=== PATIENT | female | born 1995 | race Two or more races ===

== ENCOUNTER 2019-03-20 19:21 | Emergency (ER) | payer OTHER ==
[~2019-03-20] VITALS: Ht 170.2 cm; Wt 80.3 kg
--- NOTE | 2019-03-20 19:31 | NUR ---
LURDES FROM HOME. TO ER BED 11. AAOX 4. NO RESP DISTRESS NOTED, BREATHING EVEN AND UNLABORED. BROUGHT IN ON GURNEY. 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 PT ALSO REPORTS THAT SHE PASSED OUT SHE WAS GETTING IN TO THE CAR THATS WHEN HER MOM CALLED [employer]. PT REPORTS THAT IT STARTED YESTERDAY AT [facility]. SHE THEN JAYDA TO [facility] W. FEVER OF 102 AND WAS TOLD THAT HER BP WAS ELEVATED. MD AT BEDSIDE FOR EVAL. AWAITING ORDERS
--- NOTE | 2019-03-20 19:41 | NUR ---
TECH AT BEDSIDE FOR EKG
[2019-03-20] MEDS ORDERED: ONDANSETRON HCL/PF 4 MG/2 ML VIAL IV ONE (20:00)
[2019-03-20] MEDS ORDERED: PANTOPRAZOLE 40 MG VIAL IV ONE (20:00)
[2019-03-20] MEDS ORDERED: ACETAMINOPHEN 325 MG TABLET PO ONE (20:00)
[2019-03-20] MEDS ORDERED: IV NS 0.9% 1,000 ML BAG IV ONE ×2 (20:00→21:00)
[2019-03-20 20:03] LABS: BASOPHILS % (AUTO) 0.5 % (0.0-2.0); EOSINOPHILS % (AUTO) 0.1 % (0.0-6.0); HEMATOCRIT 40 % (33-45); HEMOGLOBIN 13.5 g/dL (11.5-14.8); LYMPHOCYTES # (AUTO) 0.7 /CMM (0.8-4.8); MEAN CORPUSCULAR HGB CONC 34 g/dl (31.0-36.0); MEAN CORPUSCULAR VOLUME 91 fL (82-100); MONOCYTES # (AUTO) 0.5 /CMM (0.1-1.30); MONOCYTES % (AUTO) 13.6 % (2.0-12.0); NEUTROPHILS # (AUTO) 2.5 /CMM (1.8-8.9); NEUTROPHILS % (AUTO) 67.8 % (43.0-81.0); PLATELET COUNT (AUTO) 220 /CMM (150-450); RED BLOOD CELL COUNT(AUTO) 4.38 MIL/uL (4.0-5.2); WHITE BLOOD COUNT (AUTO) 3.7 K/uL (4.3-11.0)
[2019-03-20] MEDS ORDERED: ONDANSETRON HCL/PF 4 MG/2 ML VIAL ONE (20:05)
[2019-03-20] MEDS ORDERED: ACETAMINOPHEN ES 500 MG TABLET ONE (20:05)
[2019-03-20] MEDS ORDERED: PANTOPRAZOLE 40 MG VIAL ONE (20:05)
[2019-03-20 20:16] LABS: CALCIUM, SERUM 8.4 mg/dL (8.5-10.1); CREATININE 0.7 mg/dL (0.6-1.3); POTASSIUM 3.3 mmol/L (3.5-5.1)
--- NOTE | 2019-03-20 20:16 | NUR ---
MIGUEL MORALES MADE AWARE OF ORTHOSTATIC VS RESULT. XRAY AT BEDSIDE
[2019-03-20 20:22] LABS: ALBUMIN 3.6 g/dL (3.4-5.0); BILIRUBIN,DIRECT 0.1 mg/dL (0.0-0.2); BILIRUBIN,TOTAL 0.3 mg/dL (0.2-1.0); TOTAL PROTEIN, SERUM 7.4 g/dL (6.4-8.2)
[2019-03-20 20:22] LABS: APPEARANCE,URINE Clear (CLEAR); BILIRUBIN,URINE Negative (NEGATIVE); BLOOD, URINE Moderate Ery/uL (NEGATIVE); COLOR,URINE Yellow (YELLOW); KETONES,URINE Negative (NEGATIVE); LEUKOCYTE ESTERASE ,URINE Negative (NEGATIVE); NITRITE, URINE Negative (NEGATIVE); PROTEIN,URINE Negative (NEGATIVE); UGLUCOSE Negative (NEGATIVE)
[2019-03-20 20:33] LABS: BACTERIA,URINE 1+ /HPF (None Seen); RBC,URINE 21-50 /HPF (0-2); SQUAMOUS EPITHELIAL CELL,UR Moderate /HPF (None Seen); WBC,URINE NONE SEEN /HPF (0-3)
[2019-03-20 20:34] LABS: MUCUS,URINE Few /LPF (None Seen)
[2019-03-20] MEDS ORDERED: OSELTAMIVIR PHOSPHATE 75 MG CAPSULE ONE (20:45)
[2019-03-20] MEDS ORDERED: OSELTAMIVIR PHOSPHATE 75 MG CAPSULE PO ONE (21:00)
[2019-03-20] MEDS ORDERED: POTASSIUM CHLORIDE 20 MEQ TAB.PRT.SR PO ONE ×2 (21:00→21:07)
--- NOTE | 2019-03-20 21:38 | NUR ---
Patient discharged to home in stable condition. Written and verbal after care instructions given. Patient verbalizes understanding of instruction.IV removed. Catheter intact and site benign. Pressure and 4x4 applied to site. No bleeding noted. Pt ambulatory with a steady gait
[2019-03-20 21:39] VITALS: BP 103/69
== END 2019-03-20 22:00 | disposition home or self-care (01) ==
LOC: ER 19:23
DX: J10.1 Influenza due to other identified influenza virus with other respiratory manifestations (principal); R55 Syncope and collapse; R42 Dizziness and giddiness; R11.10 Vomiting, unspecified; R00.0 Tachycardia, unspecified; Z88.5 Allergy status to narcotic agent
CPT/HCPCS: 36415; 71045; 80048; 80076; 81001; 84703; 85025; 87804; 93005; 96361; 96374; 96375; 99284; C9113; J2405; J7030 ×2; 81000-TC

== ENCOUNTER 2019-03-22 22:26 | Emergency (ER) | payer OTHER ==
[~2019-03-22] VITALS: Ht 165.1 cm; Wt 80.7 kg
--- NOTE | 2019-03-22 22:30 | NUR ---
BIBS. C/O COUGH, CONGESTION, FEVER 102.8,HEADACHE, WEAKNESS. ON TAMIFLU X 2DAYS., pt awake, alert, -sob, nad noted, pending md das
[2019-03-22] MEDS ORDERED: ACETAMINOPHEN 325 MG TABLET ONE (22:50)
[2019-03-22] MEDS ORDERED: KETOROLAC TROMETHAMINE 15 MG/ML VIAL ONE (22:50)
[2019-03-22] MEDS ORDERED: ONDANSETRON HCL/PF 4 MG/2 ML VIAL ONE (22:50)
[2019-03-22 22:55] LABS: BASOPHILS % (AUTO) 0.5 % (0.0-2.0); HEMATOCRIT 40 % (33-45); HEMOGLOBIN 13.2 g/dL (11.5-14.8); LYMPHOCYTES # (AUTO) 0.9 /CMM (0.8-4.8); LYMPHOCYTES % (AUTO) 27.9 % (20.0-44.0); MEAN CORPUSCULAR HGB CONC 33 g/dl (31.0-36.0); MEAN CORPUSCULAR VOLUME 91 fL (82-100); MONOCYTES # (AUTO) 0.3 /CMM (0.1-1.30); NEUTROPHILS # (AUTO) 1.9 /CMM (1.8-8.9); NEUTROPHILS % (AUTO) 60.6 % (43.0-81.0); PLATELET COUNT (AUTO) 209 /CMM (150-450); RED BLOOD CELL COUNT(AUTO) 4.35 MIL/uL (4.0-5.2); WHITE BLOOD COUNT (AUTO) 3.2 K/uL (4.3-11.0)
[2019-03-22] MEDS ORDERED: ONDANSETRON HCL/PF 4 MG/2 ML VIAL IV ONE (23:00)
[2019-03-22] MEDS ORDERED: KETOROLAC TROMETHAMINE INJ 30 MG/ML VIAL IV ONE (23:00)
[2019-03-22] MEDS ORDERED: ACETAMINOPHEN 325 MG TABLET PO ONE (23:00)
[2019-03-22] MEDS ORDERED: IV NS 0.9% 1,000 ML BAG IV ONE (23:00)
[2019-03-22 23:02] LABS: CALCIUM, SERUM 8.1 mg/dL (8.5-10.1); CREATININE 0.7 mg/dL (0.6-1.3); POTASSIUM 3.1 mmol/L (3.5-5.1)
[2019-03-22 23:28] LABS: APPEARANCE,URINE Slightly Cloudy (CLEAR); BILIRUBIN,URINE SMALL (NEGATIVE); BLOOD, URINE Large Ery/uL (NEGATIVE); COLOR,URINE Dark (YELLOW); KETONES,URINE 15 (NEGATIVE); LEUKOCYTE ESTERASE ,URINE Negative (NEGATIVE); NITRITE, URINE Negative (NEGATIVE); PROTEIN,URINE Negative (NEGATIVE); UGLUCOSE Negative (NEGATIVE)
[2019-03-22 23:47] LABS: BACTERIA,URINE Few /HPF (None Seen); RBC,URINE 51-80 /HPF (0-2); SQUAMOUS EPITHELIAL CELL,UR Few /HPF (None Seen)
[2019-03-22] MEDS ORDERED: POTASSIUM CHLORIDE 20 MEQ TAB.PRT.SR PO ONE (23:56)
[2019-03-23] MEDS ORDERED: POTASSIUM CHLORIDE 20 MEQ TAB.PRT.SR PO ONE
--- NOTE | 2019-03-23 00:13 | NUR ---
Patient discharged to home in stable condition. Written and verbal after care instructions given. Patient verbalizes understanding of instruction and RX. IV removed. Catheter intact and site benign. Pressure and 4x4 applied to site. No bleeding noted. PT ambulatory with a steady gait.
[2019-03-23 00:14] VITALS: BP 112/68
== END 2019-03-23 00:14 | disposition home or self-care (01) ==
LOC: ER 22:28
DX: E86.0 Dehydration (principal); B34.9 Viral infection, unspecified; J32.1 Chronic frontal sinusitis; Z88.5 Allergy status to narcotic agent
CPT/HCPCS: 36415; 71045; 80048; 81001; 84703; 85025; 96361; 96374; 96375; 99284; J1885; J2405; J7030; 81000-TC